=== PATIENT | male | born 1930 | race Caucasian/White ===

== ENCOUNTER → 2016-10-04 | Outpatient (CLI) | payer MEDICARE, BC, OTHER ==
[2016-10-04 15:30] LABS: ANION GAP 11 (5-19); BLOOD UREA NITROGEN 24 mg/dL (7-20); CALCIUM 9.5 mg/dL (8.4-10.2); CARBON DIOXIDE 25 mmol/L (22-30); CHLORIDE 105 mmol/L (98-107); CREATININE RESULT 1.54 mg/dL (0.52-1.25); GLUCOSE 171 mg/dL (75-110); POTASSIUM 4.9 mmol/L (3.6-5.0)
== END ==
LOC: OD 13:56
PROVIDERS: ATTEND Internal Medicine Nephrology
DX: N18.3 Chronic kidney disease, stage 3 (moderate) (principal); E11.9 Type 2 diabetes mellitus without complications; E87.5 Hyperkalemia
CPT/HCPCS: 36415; 80048

== ENCOUNTER → 2016-11-22 | Outpatient (CLI) | payer MEDICARE, BC, OTHER | LOC: OD 10:04 | PROVIDERS: ATTEND Family Medicine | DX: E11.649 Type 2 diabetes mellitus with hypoglycemia without coma (principal) | CPT/HCPCS: 36415; 83036 ==

== ENCOUNTER → 2016-12-24 | Outpatient (CLI) | payer MEDICARE, BC, OTHER ==
[2016-12-24 11:59] LABS: ANION GAP 19 (5-19); BLOOD UREA NITROGEN 38 mg/dL (7-20); CALCIUM 9.4 mg/dL (8.4-10.2); CARBON DIOXIDE 18 mmol/L (22-30); CHLORIDE 109 mmol/L (98-107); CREATININE RESULT 2.06 mg/dL (0.52-1.25); GLUCOSE 95 mg/dL (75-110); POTASSIUM 3.9 mmol/L (3.6-5.0); SODIUM 146.1 mmol/L (137-145)
== END ==
LOC: OD 10:34
PROVIDERS: ATTEND Internal Medicine Nephrology
DX: N18.3 Chronic kidney disease, stage 3 (moderate) (principal); E11.9 Type 2 diabetes mellitus without complications; E87.5 Hyperkalemia
CPT/HCPCS: 36415; 80048

== ENCOUNTER → 2017-01-25 | Outpatient (CLI) | payer MEDICARE, BC, OTHER ==
[2017-01-25 11:33] LABS: HEMATOCRIT 40.2 % (37.9-51.0); HEMOGLOBIN 13.3 g/dL (13.5-17.0); HGB HCT DIFFERENCE -0.3; MEAN CORPUSCULAR HEMOGLOBIN 31.4 pg (27.0-33.4); MEAN CORPUSCULAR HGB CONC 33.1 g/dL (32.0-36.0); MEAN CORPUSCULAR VOLUME 95 fl (80-97); RED BLOOD COUNT 4.23 10^6/uL (4.35-5.55); RED CELL DISTRIBUTION WIDTH 15.1 % (11.5-14.0)
[2017-01-25 11:53] LABS: ALANINE AMINOTRANSFERASE 27 U/L (21-72); ALBUMIN 3.9 g/dL (3.5-5.0); ALKALINE PHOSPHATASE 60 U/L (38-126); ANION GAP 12 (5-19); ASPARTATE AMINO TRANSFERASE 22 U/L (17-59); BILIRUBIN,DIRECT 0.3 mg/dL (0.0-0.4); BILIRUBIN,TOTAL 0.7 mg/dL (0.2-1.3); BLOOD UREA NITROGEN 34 mg/dL (7-20); CALCIUM 9.9 mg/dL (8.4-10.2); CARBON DIOXIDE 21 mmol/L (22-30); CHLORIDE 113 mmol/L (98-107); CREATININE RESULT 1.33 mg/dL (0.52-1.25); GLUCOSE 65 mg/dL (75-110); POTASSIUM 4.8 mmol/L (3.6-5.0); SODIUM 145.7 mmol/L (137-145); TOTAL PROTEIN 7.2 g/dL (6.3-8.2); URIC ACID 3.7 mg/dL (3.5-8.5)
== END ==
LOC: OD 10:52
PROVIDERS: ATTEND Internal Medicine Nephrology
DX: N18.3 Chronic kidney disease, stage 3 (moderate) (principal); E11.9 Type 2 diabetes mellitus without complications; I95.9 Hypotension, unspecified; R53.81 Other malaise
CPT/HCPCS: 36415; 80053; 84550; 85027

== ENCOUNTER → 2017-03-08 | Outpatient (CLI) | payer MEDICARE, BC, OTHER ==
[2017-03-08 11:47] LABS: HEMATOCRIT 34.1 % (37.9-51.0); HEMOGLOBIN 11.5 g/dL (13.5-17.0); HGB HCT DIFFERENCE 0.4; MEAN CORPUSCULAR HEMOGLOBIN 32.6 pg (27.0-33.4); MEAN CORPUSCULAR HGB CONC 33.7 g/dL (32.0-36.0); MEAN CORPUSCULAR VOLUME 97 fl (80-97); RED BLOOD COUNT 3.53 10^6/uL (4.35-5.55); RED CELL DISTRIBUTION WIDTH 15.9 % (11.5-14.0); WHITE BLOOD COUNT 15.8 10^3/uL (4.0-10.5)
[2017-03-08 12:10] LABS: ANION GAP 15 (5-19); BLOOD UREA NITROGEN 37 mg/dL (7-20); CALCIUM 9.6 mg/dL (8.4-10.2); CARBON DIOXIDE 13 mmol/L (22-30); CHLORIDE 117 mmol/L (98-107); CREATININE RESULT 1.63 mg/dL (0.52-1.25); GLUCOSE 106 mg/dL (75-110); POTASSIUM 4.3 mmol/L (3.6-5.0); SODIUM 145.3 mmol/L (137-145)
== END ==
LOC: OD 10:39
PROVIDERS: ATTEND Internal Medicine Nephrology
DX: N18.3 Chronic kidney disease, stage 3 (moderate) (principal); E87.5 Hyperkalemia
CPT/HCPCS: 36415; 80048; 85027

== ENCOUNTER → 2017-04-08 | Outpatient (CLI) | payer MEDICARE, BC, OTHER ==
[2017-04-08 12:45] LABS: HEMATOCRIT 34.1 % (37.9-51.0); HEMOGLOBIN 11.5 g/dL (13.5-17.0); HGB HCT DIFFERENCE 0.4; MEAN CORPUSCULAR HEMOGLOBIN 34.8 pg (27.0-33.4); MEAN CORPUSCULAR HGB CONC 33.7 g/dL (32.0-36.0); MEAN CORPUSCULAR VOLUME 103 fl (80-97); RED BLOOD COUNT 3.31 10^6/uL (4.35-5.55); WHITE BLOOD COUNT 13.2 10^3/uL (4.0-10.5)
[2017-04-08 13:12] LABS: ANION GAP 19 (5-19); BLOOD UREA NITROGEN 48 mg/dL (7-20); CALCIUM 9.2 mg/dL (8.4-10.2); CARBON DIOXIDE 15 mmol/L (22-30); CHLORIDE 112 mmol/L (98-107); CREATININE RESULT 1.86 mg/dL (0.52-1.25); GLUCOSE 150 mg/dL (75-110); POTASSIUM 4.9 mmol/L (3.6-5.0); SODIUM 146.2 mmol/L (137-145)
== END ==
LOC: OD 11:24
PROVIDERS: ATTEND Internal Medicine Nephrology
DX: N18.3 Chronic kidney disease, stage 3 (moderate) (principal); D64.9 Anemia, unspecified; E11.9 Type 2 diabetes mellitus without complications
CPT/HCPCS: 36415; 80048; 85027

== ENCOUNTER 2017-04-09 11:58 | Emergency (ER) | payer MEDICARE, BC, OTHER ==
[2017-04-09] MEDS ORDERED: NORMAL SALINE 1000 ML 1,000 ML IV PRN (12:34)
--- NOTE | 2017-04-09 13:14 | RADIOLOGY REPORT (SQ) ---
EXAM DESCRIPTION: CT HEAD WITHOUT COMPLETED DATE/TIME: 04/09/2017 12:50 pm REASON FOR STUDY: injury COMPARISON: CT brain 02/04/2015 TECHNIQUE: Axial images acquired through the brain without intravenous contrast. Images reviewed wi th bone, brain and subdural windows. Images stored on PACS. All CT scanners at this facility use dose modulation, iterative reconstruction, and/or weight based d osing when appropriate to reduce radiation dose to as low as reasonably achievable (ALARA). [facility]: Dose Right [facility]: CareDose [facility]: Dose Right [facility]: Teradose 4D [facility]: [employer] RADIATION DOSE: Up-to-date CT equipment and radiation dose reduction techniques were employed. CTDIv ol: 62.6 mGy. DLP: 1163 mGy-cm. mGy. LIMITATIONS: None. FINDINGS: VENTRICLES: Normal size and contour. CEREBRUM: No masses. No hemorrhage. No midline shift. 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 No evidence for acute infarcti on. CEREBELLUM: No masses. No hemorrhage. No alteration of density. No evidence for acute infarction. EXTRAAXIAL SPACES: No fluid collections. No masses. ORBITS AND GLOBE: No intra- or extraconal masses. Normal contour of globe without masses. CALVARIUM: No fracture. PARANASAL SINUSES: No fluid or mucosal thickening. SOFT TISSUES: No mass or hematoma. OTHER: No other significant finding. IMPRESSION: No acute findings TECHNICAL DOCUMENTATION: JOB ID: [id number] Quality ID # [id number]: Final reports with documentation of one or more dose reduction techniques (e.g., Au tomated exposure control, adjustment of the mA and/or kV according to patient size, use of iterative reconstruction technique) 2010 [employer]- All Rights Reserved
--- NOTE | 2017-04-09 13:14 | ER Document Report ---
ED Fall - General Chief Complaint: Fall Injury Stated Complaint: FALL/HEAD INJURY Time Seen by Provider: 04/09/17 12:23 Mode of Arrival: Ambulatory Information source: Patient, Relative TRAVEL OUTSIDE OF THE [place] IN LAST 30 DAYS: No - HPI Patient complains to provider of: Fall, head injury Occurred: Just prior to arrival Where: Outdoors Context: Fell from standing Associated symptoms: None Location of injury/pain: Head Quality of pain: Achy Severity: Mild Pain Level: 1 Notes: Patient is an 87-year-old male brought to the emergency room by after fall , they were in the parking lot of the warehouse associate driver office when this occurred, states he was being on the passenger side of the car when she walked over to him he collapsed and fell to the ground, there was no loss of consciousness, he did hit the back of his head, no vomiting, no vision changes, does report that patient has had multiple falls recently, patient has a history of blood abnormality which she sees a warehouse associate driver for records it appears as though he has persistent leukocytosis, with occasional thrombocytopenia, he is also followed by nephrology for renal insufficiency and takes bicarb supplementation daily - Related data Allergies/Adverse Reactions: No Known Allergies Allergy (Unverified 04/09/17 13:38) Home Medications: Current Home Medications Febuxostat [Uloric 40 mg Tablet] 40 mg PO DAILY 04/09/17 [History] Garlic [Garlique] 1 tab PO BID 04/09/17 [History] Loratadine 10 mg PO DAILY 04/09/17 [History] Megestrol Acetate 15 ml PO DAILY 04/09/17 [History] Midodrine HCl [Proamatine 5 Mg Tablet] 5 mg PO TID 04/09/17 [History] Ondansetron [Ondansetron Odt] 4 mg PO PRN PRN 04/09/17 [History] Sodium Bicarbonate 650 mg PO BID 04/09/17 [History] Past Medical History - General Information source: Patient, Relative - Social History Smoking Status: Never Smoker Chew tobacco use (# tins/day): No Frequency of alcohol use: None Drug Abuse: None Family History: Reviewed & Not Pertinent - Past Medical History Cardiac Medical History: Reports: Hx Hypercholesterolemia, Hx Hypertension Pulmonary Medical History: Denies: Hx Tuberculosis Neurological Medical History: Denies: Hx Seizures Endocrine Medical History: Reports: Hx Diabetes Mellitus Type 2 GI Medical History: Reports: Hx Gastroesophageal Reflux Disease Musculoskeltal Medical History: Reports Hx Arthritis Psychiatric Medical History: Reports: Hx Depression Past Surgical History: Reports: Hx Cholecystectomy. Denies: Hx Pacemaker - Immunizations Hx Diphtheria, Pertussis, Tetanus Vaccination: - unk Hx Pneumococcal Vaccination: 08/26/12 Review of Systems - Review of Systems Constitutional: Weakness EENT: No symptoms reported Cardiovascular: No symptoms reported Respiratory: No symptoms reported Gastrointestinal: No symptoms reported Genitourinary: No symptoms reported Male Genitourinary: No symptoms reported Musculoskeletal: No symptoms reported Skin: See HPI Hematologic/Lymphatic: No symptoms reported Neurological/Psychological: No symptoms reported -: Yes All other systems reviewed and negative Physical Exam - Vital signs Vitals: Resp Pulse Ox 23 H 100 04/09/17 12:10 04/09/17 12:10 Interpretation: Normal - General General appearance: Appears well, Alert In distress: None - HEENT Head: Normocephalic, Ecchymosis - 2.5 x 1 cm ecchymosis to left posterior scalp Eyes: Normal Conjunctiva: Normal Extraocular movements intact: Yes Eyelashes: Normal Pupils: PERRL - Respiratory Respiratory status: No respiratory distress Chest status: Nontender Breath sounds: Normal Chest palpation: Normal - Cardiovascular Rhythm: Regular Heart sounds: Normal auscultation Murmur: No - Abdominal Inspection: Normal Distension: No distension Bowel sounds: Normal Tenderness: Nontender Organomegaly: No organomegaly - Back Back: Normal, Nontender - Extremities General upper extremity: Normal inspection, Nontender, Normal color, Normal ROM , Normal temperature General lower extremity: Normal inspection, Nontender, Normal color, Normal ROM , Normal temperature, Normal weight bearing. No: Rodo's sign - Neurological Neuro grossly intact: Yes Cognition: Normal Orientation: AAOx4 [place] Coma Scale Eye Opening: Spontaneous [place] Coma Scale Verbal: Oriented [place] Coma Scale Motor: Obeys Commands Katharina Coma Scale Total: 15 Speech: Normal Motor strength normal: LUE, RUE, LLE, RLE Sensory: Normal - Psychological Associated symptoms: Normal affect, Normal mood - Skin Skin Temperature: Warm Skin Moisture: Dry Skin Color: Normal Course - Re-evaluation Re-evalutation: 04/09/17 15:20 Lab and imaging findings were discussed with patient and spouse at bedside which are relatively unremarkable except for some chronic lab changes, patient was discharged with instructions for follow-up, advised to return if any additional concerns, patient and at bedside acknowledge understanding and agreement with this plan - Vital Signs Vital signs: Temp Pulse Resp BP Pulse Ox 97.7 F 27 H 122/55 L 100 04/09/17 13:01 04/09/17 13:01 04/09/17 13:01 04/09/17 13:01 - Laboratory Result Diagrams: 04/09/17 13:15 04/09/17 13:15 Laboratory results interpreted by me: 04/09/17 04/09/17 04/09/17 13:15 13:15 13:35 WBC 14.4 H RBC 3.32 L Hgb 11.4 L Hct 33.7 L MCV 102 H MCH 34.5 H RDW 14.1 H Plt Count 146 L Absolute Neutrophils 9.6 H Sodium 147.8 H Potassium 5.3 H Chloride 113 H Carbon Dioxide 20 L BUN 48 H Creatinine 1.79 H Est GFR ( Amer) 44 L Est GFR (Non-Af Amer) 36 L Urine Urobilinogen 2.0 H Urine Ascorbic Acid 40 H - Diagnostic Test Radiology reviewed: Image reviewed, Reports reviewed Discharge - Discharge Clinical Impression: Fall Qualifiers: Encounter type: initial encounter Qualified Code(s): W19.XXXA - Unspecified fall, initial encounter Head injury Qualifiers: Encounter type: initial encounter Qualified Code(s): S09.90XA - Unspecified injury of head, initial encounter Condition: Stable Disposition: HOME, SELF-CARE Instructions: Head Injury Precautions ([facility]) Additional Instructions: Follow up with your primary care provider in one to 2 days. Return to the emergency room immediately if symptoms worsen or any additional concerns.
[2017-04-09 13:34] LABS: VENOUS BLOOD BASE EXCESS -3.9 mmol/L; VENOUS BLOOD HCO3 22.1 mmol/L (20-32); VENOUS BLOOD PCO2 43.7 mmHg (35-63); VENOUS BLOOD PH 7.32 (7.30-7.42)
[2017-04-09 13:36] LABS: ABSOLUTE EOSINOPHILS # (AUTO) 0.1 10^3/uL (0.0-0.6); ABSOLUTE LYMPHOCYTES (AUTO) 3.6 10^3/uL (0.5-4.7); ABSOLUTE NEUT (AUTO) 9.6 10^3/uL (1.7-8.2); BASOPHILS % (AUTO) 0.3 % (0-2); EOSINOPHILS % (AUTO) 0.5 % (0-6); HEMATOCRIT 33.7 % (37.9-51.0); HEMOGLOBIN 11.4 g/dL (13.5-17.0); HGB HCT DIFFERENCE 0.5; LYMPHOCYTES % (AUTO) 25.2 % (13-45); MEAN CORPUSCULAR HEMOGLOBIN 34.5 pg (27.0-33.4); MEAN CORPUSCULAR VOLUME 102 fl (80-97); MONOCYTES % (AUTO) 6.9 % (3-13); RED BLOOD COUNT 3.32 10^6/uL (4.35-5.55); RED CELL DISTRIBUTION WIDTH 14.1 % (11.5-14.0); SEGMENTED NEUTROPHILS % (AUTO) 67.1 % (42-78); WHITE BLOOD COUNT 14.4 10^3/uL (4.0-10.5)
[2017-04-09 13:51] LABS: ALANINE AMINOTRANSFERASE 26 U/L (21-72); ALBUMIN 4.3 g/dL (3.5-5.0); ALKALINE PHOSPHATASE 52 U/L (38-126); ANION GAP 15 (5-19); ASPARTATE AMINO TRANSFERASE 34 U/L (17-59); BILIRUBIN,DIRECT 0.4 mg/dL (0.0-0.4); BILIRUBIN,TOTAL 0.8 mg/dL (0.2-1.3); BLOOD UREA NITROGEN 48 mg/dL (7-20); CALCIUM 9.7 mg/dL (8.4-10.2); CARBON DIOXIDE 20 mmol/L (22-30); CHLORIDE 113 mmol/L (98-107); CREATININE RESULT 1.79 mg/dL (0.52-1.25); GLUCOSE 88 mg/dL (75-110); POTASSIUM 5.3 mmol/L (3.6-5.0); SODIUM 147.8 mmol/L (137-145); TOTAL PROTEIN 7.4 g/dL (6.3-8.2)
[2017-04-09 13:56] LABS: APPEARANCE,URINE SLIGHTLY-CLOUDY; BILIRUBIN,URINE NEGATIVE (NEGATIVE); GLUCOSE, URINE NEGATIVE (NEGATIVE); KETONES,URINE NEGATIVE (NEGATIVE); LEUKOCYTE ESTERASE,URINE NEGATIVE (NEGATIVE); NITRITE,URINE NEGATIVE (NEGATIVE); PROTEIN,URINE NEGATIVE (NEGATIVE); URINE SPECIFIC GRAVITY 1.015
[2017-04-09 16:04] VITALS: BP 160/67
== END 2017-04-09 16:04 | disposition home or self-care (01) ==
LOC: ER 11:58
DX: S09.90XA Unspecified injury of head, initial encounter (principal); R53.1 Weakness; W18.30XA Fall on same level, unspecified, initial encounter; Y92.481 Parking lot as the place of occurrence of the external cause; E78.00 Pure hypercholesterolemia, unspecified; I10 Essential (primary) hypertension; K21.9 Gastro-esophageal reflux disease without esophagitis; Z90.49 Acquired absence of other specified parts of digestive tract
CPT/HCPCS: 99284; 96360; 36415; 87086; 85025; 80053; 81001; 82803; 70450; J7030

== ENCOUNTER → 2017-05-08 | Outpatient (CLI) | payer MEDICARE, BC, OTHER ==
[2017-05-08 12:39] LABS: BLOOD UREA NITROGEN 27 mg/dL (7-20); CALCIUM 9.4 mg/dL (8.4-10.2); CARBON DIOXIDE 19 mmol/L (22-30); CREATININE RESULT 1.51 mg/dL (0.52-1.25); SODIUM 146.7 mmol/L (137-145)
[2017-05-08 12:50] LABS: GLUCOSE 187 mg/dL (75-110); POTASSIUM 4.5 mmol/L (3.6-5.0)
[2017-05-08 12:51] LABS: ANION GAP 15 (5-19); CHLORIDE 113 mmol/L (98-107)
== END ==
LOC: OD 10:44
PROVIDERS: ATTEND Internal Medicine Nephrology
DX: N18.3 Chronic kidney disease, stage 3 (moderate) (principal); D64.9 Anemia, unspecified; E87.5 Hyperkalemia; M10.00 Idiopathic gout, unspecified site
CPT/HCPCS: 36415; 80048

== ENCOUNTER → 2017-05-15 | Outpatient (CLI) | payer MEDICARE, BC, OTHER | LOC: OD 15:21 | PROVIDERS: ATTEND Internal Medicine Nephrology | DX: E11.22 Type 2 diabetes mellitus with diabetic chronic kidney disease (principal); N18.3 Chronic kidney disease, stage 3 (moderate); D64.9 Anemia, unspecified; I95.9 Hypotension, unspecified | CPT/HCPCS: 36415; 82533 ==

== ENCOUNTER → 2017-05-28 | Outpatient (CLI) | payer MEDICARE, BC, OTHER | LOC: OD 10:49 | PROVIDERS: ATTEND Family Medicine | DX: E11.9 Type 2 diabetes mellitus without complications (principal); E78.2 Mixed hyperlipidemia; R35.1 Nocturia; I10 Essential (primary) hypertension; Z79.899 Other long term (current) drug therapy | CPT/HCPCS: 36415; 83036 ==

== ENCOUNTER → 2017-05-31 | Outpatient (CLI) | payer MEDICARE, BC, OTHER ==
[2017-05-31 12:43] LABS: ABSOLUTE BASOPHILS # (AUTO) 0.1 10^3/uL (0.0-0.2); ABSOLUTE EOSINOPHILS # (AUTO) 0.1 10^3/uL (0.0-0.6); ABSOLUTE LYMPHOCYTES (AUTO) 4.3 10^3/uL (0.5-4.7); ABSOLUTE MONOCYTES (AUTO) 0.8 10^3/uL (0.1-1.4); BASOPHILS % (AUTO) 0.4 % (0-2); EOSINOPHILS % (AUTO) 1.2 % (0-6); HEMATOCRIT 31.9 % (37.9-51.0); HEMOGLOBIN 10.9 g/dL (13.5-17.0); HGB HCT DIFFERENCE 0.8; MEAN CORPUSCULAR HEMOGLOBIN 33.7 pg (27.0-33.4); MEAN CORPUSCULAR HGB CONC 34.2 g/dL (32.0-36.0); MEAN CORPUSCULAR VOLUME 99 fl (80-97); MONOCYTES % (AUTO) 6.8 % (3-13); RED BLOOD COUNT 3.24 10^6/uL (4.35-5.55); RED CELL DISTRIBUTION WIDTH 13.6 % (11.5-14.0); SEGMENTED NEUTROPHILS % (AUTO) 56.6 % (42-78); WHITE BLOOD COUNT 12.4 10^3/uL (4.0-10.5)
[2017-05-31 12:54] LABS: ANION GAP 14 (5-19); BLOOD UREA NITROGEN 33 mg/dL (7-20); CALCIUM 9.7 mg/dL (8.4-10.2); CARBON DIOXIDE 20 mmol/L (22-30); CHLORIDE 112 mmol/L (98-107); CHOLESTEROL 133.74 mg/dL (0-200); CREATININE RESULT 1.44 mg/dL (0.52-1.25); Direct HDL 27 mg/dL (>40); GLUCOSE 85 mg/dL (75-110); POTASSIUM 4.5 mmol/L (3.6-5.0); SODIUM 145.6 mmol/L (137-145); TRIGLYCERIDES 150 mg/dL (<150)
[2017-05-31 13:04] LABS: DIRECT LDL 64 mg/dL (<100)
[2017-05-31 13:14] LABS: ANION GAP 14 (5-19); BLOOD UREA NITROGEN 33 mg/dL (7-20); CALCIUM 9.7 mg/dL (8.4-10.2); CARBON DIOXIDE 20 mmol/L (22-30); CHLORIDE 112 mmol/L (98-107); CREATININE RESULT 1.44 mg/dL (0.52-1.25); GLUCOSE 85 mg/dL (75-110); POTASSIUM 4.5 mmol/L (3.6-5.0); SODIUM 145.6 mmol/L (137-145)
[2017-05-31 13:15] LABS: MAGNESIUM 1.3 mg/dL (1.6-2.3)
== END ==
LOC: OD 11:34
PROVIDERS: ATTEND Family Medicine
DX: I12.9 Hypertensive chronic kidney disease with stage 1 through stage 4 chronic kidney disease, or unspecified chronic kidney disease (principal); N18.3 Chronic kidney disease, stage 3 (moderate); E11.9 Type 2 diabetes mellitus without complications; D64.9 Anemia, unspecified; I95.9 Hypotension, unspecified; E78.2 Mixed hyperlipidemia; R35.1 Nocturia; Z79.899 Other long term (current) drug therapy
CPT/HCPCS: 36415; 80048; 80061; 83735; 84153; 84443; 85025

== ENCOUNTER → 2017-06-11 | Outpatient (CLI) | payer MEDICARE, BC, OTHER | LOC: OD 15:42 | PROVIDERS: ATTEND Internal Medicine Nephrology | DX: E83.42 Hypomagnesemia (principal); E87.5 Hyperkalemia; N18.3 Chronic kidney disease, stage 3 (moderate); I95.9 Hypotension, unspecified | CPT/HCPCS: 36415; 82024 ==

== ENCOUNTER → 2017-07-04 | Outpatient (CLI) | payer MEDICARE, BC, OTHER ==
[2017-07-04 13:11] LABS: HEMATOCRIT 35.5 % (37.9-51.0); HEMOGLOBIN 12.1 g/dL (13.5-17.0); HGB HCT DIFFERENCE 0.8; MEAN CORPUSCULAR HEMOGLOBIN 32.6 pg (27.0-33.4); MEAN CORPUSCULAR VOLUME 96 fl (80-97); RED CELL DISTRIBUTION WIDTH 14.2 % (11.5-14.0); WHITE BLOOD COUNT 12.4 10^3/uL (4.0-10.5)
[2017-07-04 13:37] LABS: ANION GAP 16 (5-19); BLOOD UREA NITROGEN 28 mg/dL (7-20); CALCIUM 9.5 mg/dL (8.4-10.2); CARBON DIOXIDE 25 mmol/L (22-30); CHLORIDE 106 mmol/L (98-107); CREATININE RESULT 1.34 mg/dL (0.52-1.25); GLUCOSE 220 mg/dL (75-110); MAGNESIUM 1.6 mg/dL (1.6-2.3); POTASSIUM 3.9 mmol/L (3.6-5.0); SODIUM 146.6 mmol/L (137-145)
== END ==
LOC: OD 11:25
PROVIDERS: ATTEND Internal Medicine Nephrology
DX: E83.42 Hypomagnesemia (principal); E87.5 Hyperkalemia; N18.3 Chronic kidney disease, stage 3 (moderate); I95.9 Hypotension, unspecified
CPT/HCPCS: 36415; 80048; 82024; 82533; 83735; 85027

== ENCOUNTER 2017-07-09 01:45 | Inpatient (IN) | payer MEDICARE, BC, OTHER ==
[2017-07-09] MEDS ORDERED: NORMAL SALINE 1000 ML 2,000 ML IV ONE (02:20)
--- NOTE | 2017-07-09 02:23 | ER Document Report ---
ED General <ELIESER MÁRQUEZ - Last Filed: 07/09/17 05:03> - General TRAVEL OUTSIDE OF THE [place] IN LAST 30 DAYS: No <SUDHA FLORENCE - Last Filed: 07/09/17 08:28> - General Chief Complaint: Shortness Of Breath Stated Complaint: DIFFICULTY BREATHING Time Seen by Provider: 07/09/17 01:57 Notes: Patient is an 87-year-old male presents emergency department via EMS with chief complaint of productive cough with shortness of breath for 1-1/2 weeks. According to EMS who picked him up from his home his saying that he woke up this evening with difficulty breathing and gagging. Per EMS report patient is at baseline and is oriented to person and place but difficulty with balance. Review of the records shows patient has a history of chronic kidney disease stage III and follows with Dr. Otto and Dr. Martin. Medical history significant for diabetes, history of hypotension, history of gout. Patient is on bicarb for his kidney disease (SUDHA FLORENCE) - Related Data Allergies/Adverse Reactions: No Known Allergies Allergy (Unverified 04/09/17 13:38) Home Medications: Current Home Medications Calcium Carb/D3/Magnesium/Zinc [Shankar Mag Zinc + D Tablet] 1 tab PO DAILY [History] Meclizine HCl [Antivert 25 mg Tablet] 0.5 - 1 tab PO QIDP PRN 07/09/17 [History] Prednisone [Prednisone] 5 mg PO QHS 07/09/17 [History] Prednisone [Prednisone] 10 mg PO QAM 07/09/17 [History] Past Medical History - Social History Smoking Status: Unknown if Ever Smoked Family History: Reviewed & Not Pertinent - Past Medical History Cardiac Medical History: Reports: Hx Hypercholesterolemia, Hx Hypertension Pulmonary Medical History: Denies: Hx Tuberculosis Neurological Medical History: Denies: Hx Seizures Endocrine Medical History: Reports: Hx Diabetes Mellitus Type 2 GI Medical History: Reports: Hx Gastroesophageal Reflux Disease Musculoskeltal Medical History: Reports Hx Arthritis Psychiatric Medical History: Reports: Hx Depression Past Surgical History: Reports: Hx Cholecystectomy. Denies: Hx Pacemaker - Immunizations Hx Diphtheria, Pertussis, Tetanus Vaccination: - unk Hx Pneumococcal Vaccination: 08/26/12 <SUDHA FLORENCE - Last Filed: 07/09/17 08:28> Review of Systems - Review of Systems -: Yes ROS unobtainable due to patient's medical condition <PRASHANTSUDHA - Last Filed: 07/09/17 08:28> Physical Exam <ELIESER MÁRQUEZ - Last Filed: 07/09/17 05:03> <SUDHA FLORENCE - Last Filed: 07/09/17 08:28> - Vital signs Vitals: Temp Pulse Resp BP Pulse Ox 98.8 F 110 H 18 140/64 H 95 07/09/17 01:50 07/09/17 01:50 07/09/17 01:50 07/09/17 01:50 07/09/17 01:50 - Notes Notes: PHYSICAL EXAM GENERAL: Alert, interacts well. Oriented to person and place but not events HEAD: Normocephalic, atraumatic. EYES: Pupils equal, round, and reactive to light. Extraocular movements intact. ENT: Oral mucosa moist, tongue midline. NECK: Full range of motion. Supple. Trachea midline. LUNGS: Diminished at the bases without wheezes, rales, or rhonchi. No respiratory distress. HEART: Regular rate and rhythm. No murmurs, gallops, or rubs. ABDOMEN: Soft, nondistended, nontender. No guarding, rebound, or rigidity.. Bowel sounds present in all 4 quadrants. EXTREMITIES: Moves all 4 extremities spontaneously. No edema, radial and dorsalis pedis pulses 2/4 bilaterally. No cyanosis. NEUROLOGICAL: Normal speech. PSYCH: Normal affect, normal mood. SKIN: Warm, dry, normal turgor. No rashes or lesions noted. (SUDHA FLORENCE) Course - Laboratory Result Diagrams: 07/09/17 02:37 07/09/17 02:30 <ELIESER MÁRQUEZ Mindy - Last Filed: 07/09/17 05:03> - Laboratory Result Diagrams: 07/09/17 06:14 07/09/17 06:14 <SUDHA FLORENCE - Last Filed: 07/09/17 08:28> - Re-evaluation Re-evalutation: 07/09/17 05:03 Discussed with Sudha Florence. I assessed the patient and he had continued hypotension despite fluid boluses. His pulses did remain bounding and cap refill < 3 sec Skin warm and dry. (ELIESER MÁRQUEZ) 07/09/17 02:30 Patient is an 87-year-old male is hemodynamically stable with an initial pressure of 140/64, mildly tachycardic in the 110's. Afebrile with initial temp of 98.8 and satting 95% on room air. Presentation is concerning for sepsis given tachycardia and presentation of a productive cough of 1-1/2 weeks. Chest x-ray ordered in triage shows concerns for possible bilateral infiltrate versus congestion. Sepsis protocol initiated and patient will receive initial saline bolus. 07/09/17 04:40 White count at 10.7 with 91% neutrophils indicating left shift. Mild elevation in patient's BUN and creatinine from baseline of his stage III chronic kidney disease. Lactic acid of 5.1 with an anion gap of 17. Urinalysis does show evidence of leuk esterase and bacteria. Will cover with Zosyn. Difficulty establishing peripheral access. Dr. Márquez has placed a right femoral line. Patient has received 2L of NS with a third started. Patient has been maintaining systolics in 70's and 80's. Will initiate patient on levophed gtt. 07/09/17 05:21 Systolics between 80's and 110's on levophed. Patient has become increasingly tachypneic with worsening AMS. Will intubate the patient due to tachypnea, altered mental status. 07/09/17 06:15 Patient intubated, will obtain repeat ABG, EKG and lactic. 07/09/17 06:37 Repeat systolics 56-76 on levophed, have also initiated a second pressor of neosynephrine to titrate to goal MAP of 65. Was able to contact his 07/09/17 07:19 Have placed call to admit patient to ICU 07/09/17 07:49 Patient has been accepted to ICU under Dr. Boyd. Patient tachpyneic, will give a dose of versed (SUDHA FLORENCE) - Vital Signs Vital signs: Temp Pulse Resp BP Pulse Ox 97.4 F 110 H 41 H 65/33 L 100 07/09/17 08:12 07/09/17 01:50 07/09/17 08:12 07/09/17 08:12 07/09/17 08:12 - Laboratory Laboratory results interpreted by me: 11/14/17 11/14/17 11/14/17 02:30 02:30 02:37 WBC 10.7 H RBC 3.04 L Hgb 10.1 L Hct 29.1 L MCV MCHC RDW 14.6 H Plt Count 123 L Seg Neutrophils % 91.5 H Band Neutrophils % Lymphocytes % 7.7 L Monocytes % 0.6 L Absolute Neutrophils 9.8 H Abs Neuts (Manual) Carbonic Acid ABG pH ABG pCO2 ABG pO2 ABG HCO3 ABG Total CO2 ABG O2 Saturation VBG pH VBG pCO2 Chloride Carbon Dioxide 19 L BUN 35 H Creatinine 1.63 H Est GFR ( Amer) 49 L Est GFR (Non-Af Amer) 40 L Glucose 189 H Lactic Acid Calcium Direct Bilirubin Creatine Kinase < 20 L NT-Pro-B Natriuret Pep 1550 H Total Protein 6.1 L Albumin Urine Protein Urine Blood Urine Urobilinogen Ur Leukocyte Esterase Crossmatch 07/09/17 07/09/17 07/09/17 02:37 02:37 03:05 WBC RBC Hgb Hct MCV MCHC RDW Plt Count Seg Neutrophils % Band Neutrophils % Lymphocytes % Monocytes % Absolute Neutrophils Abs Neuts (Manual) Carbonic Acid ABG pH ABG pCO2 ABG pO2 ABG HCO3 ABG Total CO2 ABG O2 Saturation VBG pH 7.49 H VBG pCO2 28.3 L Chloride Carbon Dioxide BUN Creatinine Est GFR ( Amer) Est GFR (Non-Af Amer) Glucose Lactic Acid 5.1 H Calcium Direct Bilirubin Creatine Kinase NT-Pro-B Natriuret Pep Total Protein Albumin Urine Protein 100 H Urine Blood MODERATE H Urine Urobilinogen 4.0 H Ur Leukocyte Esterase MODERATE H Crossmatch 07/09/17 07/09/17 07/09/17 06:14 06:14 06:14 WBC 28.3 H D RBC 1.96 L Hgb 6.4 L D Hct 20.8 L MCV 106 H D MCHC 30.6 L RDW 15.2 H Plt Count 133 L Seg Neutrophils % Band Neutrophils % 14 H Lymphocytes % Monocytes % Absolute Neutrophils Abs Neuts (Manual) 23.8 H Carbonic Acid ABG pH ABG pCO2 ABG pO2 ABG HCO3 ABG Total CO2 ABG O2 Saturation VBG pH VBG pCO2 Chloride 112 H Carbon Dioxide 7 L* D BUN 31 H Creatinine 1.97 H Est GFR ( Amer) 39 L Est GFR (Non-Af Amer) 32 L Glucose 384 H Lactic Acid 13.6 H Calcium 7.2 L Direct Bilirubin 0.5 H Creatine Kinase NT-Pro-B Natriuret Pep Total Protein 3.9 L Albumin 2.1 L Urine Protein Urine Blood Urine Urobilinogen Ur Leukocyte Esterase Crossmatch 07/09/17 07/09/17 06:20 07:41 WBC RBC Hgb Hct MCV MCHC RDW Plt Count Seg Neutrophils % Band Neutrophils % Lymphocytes % Monocytes % Absolute Neutrophils Abs Neuts (Manual) Carbonic Acid 0.73 L ABG pH 7.02 L* ABG pCO2 24.2 L ABG pO2 215.1 H ABG HCO3 6.1 L ABG Total CO2 6.8 L ABG O2 Saturation 98.9 H VBG pH VBG pCO2 Chloride Carbon Dioxide BUN Creatinine Est GFR ( Amer) Est GFR (Non-Af Amer) Glucose Lactic Acid Calcium Direct Bilirubin Creatine Kinase NT-Pro-B Natriuret Pep Total Protein Albumin Urine Protein Urine Blood Urine Urobilinogen Ur Leukocyte Esterase Crossmatch See Detail Procedures - Central Line Right Femoral Consent obtained: No - Emergent as patient appears confused but did agree. Persistenting Hypotens Central line pre-insertion: Sterile PPE donned, Chloraprep applied, Sterile drapes applied Central line lumen type: Triple Anesthetic type: 1% Lidocaine mL's of anesthesia: 2 Ultrasound guided: No Line secured with sutures: Yes Central line post-insertion: Blood return from lumens, Biopatch applied, Sutured , Sterile dressing applied, Other - 8.5 Hebrew Placed using Seldinger technique emergently due to hypoperfusion Number of attempts: 1 Complications: No <ELIESER MÁRQUEZ - Last Filed: 07/09/17 05:03> - Intubation Orotracheal Time of Intubation: 05:35 Airway evaluation: Normal anatomy, Copious secretions Mallampati Classification: Class 1 Medications: Etomidate, Succinylcholine Intubation method: Orotracheal [place]ade type: [place], Other - [place] Equipment used: Glidescope ETT size: 7.5 ETT secured at: Gums ETT secured at (cm): 22 Breath Sounds after Intubation: Equal End tidal CO2 confirmed: Yes Ventilator settings: CMV Post Intubation Xray: Yes Intubation Complications: No complications <SUDHA FLORENCE - Last Filed: 07/09/17 08:28> Discharge <ELIESER MÁRQUEZ Mindy - Last Filed: 07/09/17 05:03> - Discharge Admitting Provider: [facility] Unit Admitted: ICU <SUDHA FLORENCE - Last Filed: 07/09/17 08:28> - Discharge Clinical Impression: Sepsis Qualifiers: Sepsis type: sepsis due to unspecified organism Qualified Code(s): A41.9 - Sepsis, unspecified organism Pneumonia Qualifiers: Pneumonia type: due to unspecified organism Laterality: bilateral Lung location : lower lobe of lung Qualified Code(s): J18.9 - Pneumonia, unspecified organism Respiratory failure Qualifiers: Chronicity: acute Respiratory failure complication: hypoxia and hypercapnia Qualified Code(s): J96.01 - Acute respiratory failure with hypoxia Condition: Critical Disposition: ADMITTED INPATIENT
--- NOTE | 2017-07-09 02:27 | RADIOLOGY REPORT (SQ) ---
EXAM DESCRIPTION: CHEST SINGLE VIEW CLINICAL HISTORY: productive cough COMPARISON: 02/04/2015 FINDINGS: Single frontal view of the chest. Low lung volumes. Bilateral interstitial opacities. No large effusion definitely identified. No pneumothorax. No displaced rib fractures identified. Upper abdominal soft tissues are unremarkable. IMPRESSION: 1. Bilateral interstitial opacities and low lung volumes. This may be related to a combination of chronic interstitial opacities and atelectasis however superimposed developing pneumonia or pulmonary edema can produce similar appearances. Continued radiographic follow-up recommended.
[2017-07-09 02:56] LABS: VENOUS BLOOD BASE EXCESS -1.3 mmol/L; VENOUS BLOOD HCO3 21.2 mmol/L (20-32); VENOUS BLOOD PCO2 28.3 mmHg (35-63); VENOUS BLOOD PH 7.49 (7.30-7.42)
[2017-07-09 03:00] LABS: ABSOLUTE LYMPHOCYTES (AUTO) 0.8 10^3/uL (0.5-4.7); ABSOLUTE MONOCYTES (AUTO) 0.1 10^3/uL (0.1-1.4); ABSOLUTE NEUT (AUTO) 9.8 10^3/uL (1.7-8.2); BASOPHILS % (AUTO) 0.1 % (0-2); EOSINOPHILS % (AUTO) 0.1 % (0-6); HEMATOCRIT 29.1 % (37.9-51.0); HEMOGLOBIN 10.1 g/dL (13.5-17.0); HGB HCT DIFFERENCE 1.2; LYMPHOCYTES % (AUTO) 7.7 % (13-45); MEAN CORPUSCULAR HEMOGLOBIN 33.2 pg (27.0-33.4); MEAN CORPUSCULAR HGB CONC 34.7 g/dL (32.0-36.0); MEAN CORPUSCULAR VOLUME 96 fl (80-97); MONOCYTES % (AUTO) 0.6 % (3-13); RED BLOOD COUNT 3.04 10^6/uL (4.35-5.55); RED CELL DISTRIBUTION WIDTH 14.6 % (11.5-14.0); SEGMENTED NEUTROPHILS % (AUTO) 91.5 % (42-78); WHITE BLOOD COUNT 10.7 10^3/uL (4.0-10.5)
[2017-07-09 03:26] LABS: AMORPHOUS SEDIMENT,URINE TRACE /HPF; APPEARANCE,URINE CLOUDY; BILIRUBIN,URINE NEGATIVE (NEGATIVE); GLUCOSE, URINE NEGATIVE (NEGATIVE); KETONES,URINE NEGATIVE (NEGATIVE); LEUKOCYTE ESTERASE,URINE MODERATE (NEGATIVE); NITRITE,URINE NEGATIVE (NEGATIVE); PROTEIN,URINE 100 mg/dL (NEGATIVE); URINE SPECIFIC GRAVITY 1.012
[2017-07-09 03:31] LABS: CREATINE KINASE MB 0.34 ng/mL (<4.55); TROPONIN I 0.028 ng/mL
[2017-07-09 03:45] LABS: ALANINE AMINOTRANSFERASE 36 U/L (21-72); ALBUMIN 3.6 g/dL (3.5-5.0); ALKALINE PHOSPHATASE 93 U/L (38-126); ANION GAP 17 (5-19); ASPARTATE AMINO TRANSFERASE 21 U/L (17-59); BILIRUBIN,DIRECT 0.4 mg/dL (0.0-0.4); BLOOD UREA NITROGEN 35 mg/dL (7-20); CALCIUM 8.6 mg/dL (8.4-10.2); CARBON DIOXIDE 19 mmol/L (22-30); CHLORIDE 104 mmol/L (98-107); CREATINE KINASE < 20 U/L (55-170); CREATININE RESULT 1.63 mg/dL (0.52-1.25); GLUCOSE 189 mg/dL (75-110); SODIUM 139.7 mmol/L (137-145); TOTAL PROTEIN 6.1 g/dL (6.3-8.2)
[2017-07-09] MEDS ORDERED: PIPERACILLIN/TAZOBACTAM 2.25 GM VIAL IV ONE (03:57)
[2017-07-09] MEDS ORDERED: NORMAL SALINE 1000 ML 1,000 ML IV ONE ×2 (04:38→06:30)
[2017-07-09] MEDS ORDERED: WATER IV PRN ×2 (04:39)
[2017-07-09] MEDS ORDERED: NOREPINEPHRINE BITARTRATE IV PRN ×2 (04:39)
[2017-07-09] MEDS ORDERED: DEXTROSE 5% IV PRN ×4 (04:39→09:24)
[2017-07-09] MEDS ORDERED: NOREPINEPHRINE BITARTRATE INJ/PF 4 MG/4 ML SDV IV ONE ×3 (04:44→08:32)
[2017-07-09] MEDS ORDERED: ETOMIDATE INJ/PF 20 MG/10 ML SDV IV ONE ×2 (05:36→05:47)
[2017-07-09] MEDS ORDERED: SUCCINYLCHOLINE CHLORIDE INJ 200 MG/10 ML VIAL IV ONE (05:47)
[2017-07-09] MEDS ORDERED: MIDAZOLAM 2 MG/2 ML INJ IV ONE (05:50)
--- NOTE | 2017-07-09 06:22 | RADIOLOGY REPORT (SQ) ---
EXAM DESCRIPTION: CHEST SINGLE VIEW CLINICAL HISTORY: shortness of breath, sepsis COMPARISON: 07/09/2017 FINDINGS: Single frontal view of the chest. Endotracheal tube with tip 2 cm above the simon. Leads in overlie the chest. Atherosclerotic calcification of the aortic arch. Low lung volumes with streaky bibasilar opacities and slightly improved aeration bilaterally. No pneumothorax. No displaced rib fractures identified. Upper abdominal soft tissues are unremarkable. IMPRESSION: Improved aeration the lung bases bilaterally with streaky bibasilar residual opacities and low lung volumes. Endotracheal tube 2 cm above the simon.
[2017-07-09] MEDS ORDERED: DEXTROSE 5%-WATER 250 ML with PHENYLEPHRINE HCL 40 MG IV PRN ×4 (06:27→10:15)
[2017-07-09] MEDS ORDERED: PHENYLEPHRINE HCL INJ/PF 10 MG/1 ML SDV ONE ×2 (06:29→08:32)
[2017-07-09 06:34] LABS: ARTERIAL BLOOD BASE EXCESS -22.9 mmol/L; ARTERIAL BLOOD O2 SATURATION 98.9 % (94-98)
[2017-07-09 06:38] LABS: HEMATOCRIT 20.8 % (37.9-51.0); HGB HCT DIFFERENCE -1.6; MEAN CORPUSCULAR HEMOGLOBIN 32.5 pg (27.0-33.4); MEAN CORPUSCULAR HGB CONC 30.6 g/dL (32.0-36.0); RED BLOOD COUNT 1.96 10^6/uL (4.35-5.55); RED CELL DISTRIBUTION WIDTH 15.2 % (11.5-14.0)
[2017-07-09 07:10] LABS: HEMOGLOBIN 6.4 g/dL (13.5-17.0); MEAN CORPUSCULAR VOLUME 106 fl (80-97)
[2017-07-09] MEDS ORDERED: NORMAL SALINE 250 ML IV PRN ×2 (07:10)
[2017-07-09 07:11] LABS: WHITE BLOOD COUNT 28.3 10^3/uL (4.0-10.5)
[2017-07-09 07:14] LABS: ANISOCYTOSIS SLIGHT; BASOPHILS % (MANUAL) 0 % (0-2); EOSINOPHILS % (MANUAL) 0 % (0-6); LYMPHOCYTES % (MANUAL) 13 % (13-45); OVALOCYTES SLIGHT; POIKILOCYTOSIS 1+; SCHISTOCYTES 1+; TOTAL CELLS COUNTED 100; TOXIC GRANULATION 2+; TOXIC VACUOLATION PRESENT
[2017-07-09 07:15] LABS: BAND NEUTROPHILS % (MANUAL) 14 % (3-5)
--- NOTE | 2017-07-09 07:24 | ER Document Report ---
Sepsis - Sepsis Documentation Sepsis Patient: Yes - Vital Signs Vitals: Temp Pulse Resp BP Pulse Ox 98.1 F 110 H 35 H 108/67 100 07/09/17 07:16 07/09/17 01:50 07/09/17 07:16 07/09/17 07:16 07/09/17 07:16 Interpretation: Hypotensive, Tachycardic, Tachypneic - Cardiovascular Peripheral Pulse Strength: Bounding Capillary refill: < 3 seconds Rhythm: Tachycardia Heart Sounds: Normal auscultation, S1 appreciated, S2 appreciated - Respiratory Breath Sounds: Rhonchi Respiratory Status: Intubated - Skin Skin Color: Pale
[2017-07-09 07:25] LABS: ALANINE AMINOTRANSFERASE 28 U/L (21-72); ALBUMIN 2.1 g/dL (3.5-5.0); ALKALINE PHOSPHATASE 73 U/L (38-126); ASPARTATE AMINO TRANSFERASE 41 U/L (17-59); BILIRUBIN,DIRECT 0.5 mg/dL (0.0-0.4); BILIRUBIN,TOTAL 0.7 mg/dL (0.2-1.3); BLOOD UREA NITROGEN 31 mg/dL (7-20); CALCIUM 7.2 mg/dL (8.4-10.2); CHLORIDE 112 mmol/L (98-107); CREATININE RESULT 1.97 mg/dL (0.52-1.25); GLUCOSE 384 mg/dL (75-110); POTASSIUM 4.1 mmol/L (3.6-5.0); SODIUM 140.2 mmol/L (137-145); TOTAL PROTEIN 3.9 g/dL (6.3-8.2)
[2017-07-09] MEDS ORDERED: NORMAL SALINE 1000 ML 1,000 ML IV PRN (07:39)
[2017-07-09 07:48] LABS: CARBON DIOXIDE 7 mmol/L (22-30)
[2017-07-09] MEDS ORDERED: DEXTROSE 5%-NORMAL SALINE 1,000 ML IV PRN (08:16)
[2017-07-09] MEDS ORDERED: PROPOFOL 100 ML IV ONE (08:23)
[2017-07-09 08:28] LABS: ANION GAP 21 (5-19)
[2017-07-09] MEDS ORDERED: VANCOMYCIN HCL 0 MG in DEXTROSE 5%-WATER 250 ML IV NR (08:30)
[2017-07-09] MEDS ORDERED: PHARMACY COMMUNICATION ORDER MC NR (08:30)
[2017-07-09] MEDS ORDERED: VASOPRESSIN INJ 20 UNIT/1 ML VIAL ONE (09:08)
[2017-07-09 09:14] LABS: ARTERIAL BLOOD BASE EXCESS -23.7 mmol/L; ARTERIAL BLOOD O2 SATURATION 98.8 % (94-98)
[2017-07-09] MEDS ORDERED: DEXTROSE 5%-WATER 250 ML with VASOPRESSIN 100 UNIT IV PRN ×2 (09:21)
[2017-07-09] MEDS ORDERED: SODIUM BICARBONATE IV PRN ×2 (09:24)
[2017-07-09] MEDS ORDERED: 1/2 NORMAL SALINE IV PRN ×2 (09:24)
[2017-07-09] MEDS ORDERED: INFLUENZA ADLT QUAD (36MOS+) 2017-18 VAC 0.5 ML SYR IM PRN (09:25)
--- NOTE | 2017-07-09 09:43 | EKG REPORT ---
SEVERITY:- ABNORMAL ECG - ACCELERATED JUNCTIONAL RHYTHM PROBABLE POSTERIOR INFARCT BORDERLINE PROLONGED QT INTERVAL FUSION BEAT : Confirmed by: Tamara Acuna 09-Jul-2017 09:42:24
--- NOTE | 2017-07-09 09:43 | EKG REPORT ---
SEVERITY:- ABNORMAL ECG - SINUS TACHYCARDIA POSTERIOR INFARCT : Confirmed by: Tamara Acuna 09-Jul-2017 09:42:31
[2017-07-09] MEDS ORDERED: VANCOMYCIN HCL 1,500 MG in DEXTROSE 5%-WATER 250 ML IV ONE (10:00)
[2017-07-09] MEDS ORDERED: LEVOFLOXACIN 750 MG/D5W RTU 750 MG/150 ML RTUPB IV ONE (10:00)
[2017-07-09] MEDS ORDERED: DEXTROSE 5%-WATER 250 ML with NOREPINEPHRINE BITARTRATE 4 MG IV PRN ×2 (10:15)
[2017-07-09] MEDS ORDERED: SUCCINYLCHOLINE CHLORIDE INJ 200 MG/10 ML VIAL ONE (10:23)
[2017-07-09 11:22] LABS: ARTERIAL BLOOD BASE EXCESS -24.2 mmol/L; ARTERIAL BLOOD O2 SATURATION 99.8 % (94-98)
[2017-07-09 11:28] LABS: PATH REVIEW PATHOLOGIST REVIEWED
[2017-07-09 11:47] LABS: ARTERIAL BLOOD BASE EXCESS -22.4 mmol/L; ARTERIAL BLOOD O2 SATURATION 99.6 % (94-98)
[2017-07-09] MEDS ORDERED: CEFTRIAXONE 1 GM/D5W RTU 1 GM/50 ML RTUPB IV SCH (12:00)
--- NOTE | 2017-07-09 12:04 | Operative Report ---
Operative Report DATE OF SURGERY: 07/09/17 - septic shock Operative Report: 87-year-old male presented in septic shock hypoxemic intubated. His left groin was prepped and draped in a sterile manner 3 cc of 1% lidocaine was introduced into the area and using Arrow kit a 20-gauge femoral catheter was inserted into her is to his left femoral artery with excellent waveforms the line was sutured into place patient tolerated the procedure well.Distal extremities remain cool but pulses were palpable PREOPERATIVE DIAGNOSIS: Septic shock POSTOPERATIVE DIAGNOSIS: Same OPERATION: Insertion of left femoral arterial line SURGEON: ИРИНА BECKER ANESTHESIA: GA TISSUE REMOVED OR ALTERED: Not applicable COMPLICATIONS: None ESTIMATED BLOOD LOSS: 0cc
--- NOTE | 2017-07-09 12:12 | PDOC CONSULTATION ---
Consultation Consult Date: 07/09/17 Attending physician:: CONRADO GOFF Consult reason:: septic shock pna resp failure History of Present Illness Admission Date/PCP: 07/09/17 08:07 Vargas YUN MD History of Present Illness: ELIESER MOYA is a 87 year old malePresented to the emergency room hypoxic and hypotensive was subsequently started on multiple vasopressor agents and intubated and transferred to the ICU thus far he has had adequate arch mean arterial pressure of approximately 70 and saturations have run from 90-98% on FiO2 of 50%. Able to blow off PCO2 to large degree however this is not yet been adequate enough to make a significant improvement in his serum pH we will give him some sodium bicarbonate hoping transiently improving his pH.He is also noted to have a hemoglobin of 6.4 and is subsequently undergoing a transfusion 3 units of packed red cells patient's overall prognosis is extremely poor Portions of this note were dictated during [employer] natural speaking voice recognition software. Variations in spelling and tvocabulary are possible and unintentional. Please notify the author if any discrepancies are noted. Past Medical History Cardiac Medical History: Reports: Hyperlipidema, Hypertension Pulmonary Medical History: Denies: Tuberculosis Neurological Medical History: Denies: Seizures Endocrine Medical History: Reports: Diabetes Mellitus Type 2 GI Medical History: Reports: Gastroesophageal Reflux Disease Musculoskeltal Medical History: Reports: Arthritis Psychiatric Medical History: Reports: Depression Traumatic Medical History: Denies: Gunshot Wound, Pneumothorax Past Surgical History Past Surgical History: Reports: Cholecystectomy Denies: Pacemaker Social History Information Source: [facility] Records Lives with: Family Smoking Status: Unknown if Ever Smoked Frequency of Alcohol Use: None Hx Recreational Drug Use: No Drugs: None Hx Prescription Drug Abuse: No Do you have pets?: No Have you had any respiratory illnesses as a child?: No Have you been exposed to any sick contacts recently?: No Have you had any recent respiratory illnesses?: No Have you travelled outside of [place] in the past 12 months?: No Family History Family History: Reviewed & Not Pertinent Parental Family History Reviewed: No Children Family History Reviewed: No Sibling(s) Family History Reviewed.: No Medication/Allergy Home Medications: [place]-3 Acid Ethyl Esters [Lovaza 1 gm Capsule] 1 gm PO BID 12/10/11 Simvastatin [Zocor 40 mg Tablet] 40 mg PO QHS 12/10/11 Esomeprazole Magnesium [Nexium] 20 mg PO BID 02/04/15 Garlic [Garlique] 1 tab PO BID 04/09/17 Megestrol Acetate 15 ml PO QAM 04/09/17 Ondansetron [Ondansetron Odt] 4 mg PO TIDP PRN 04/09/17 Sodium Bicarbonate 650 mg PO BID 04/09/17 Calcium Carb/D3/Magnesium/Zinc [Shankar Mag Zinc + D Tablet] 1 tab PO DAILY Meclizine HCl [Antivert 25 mg Tablet] 0.5 - 1 tab PO QIDP PRN 07/09/17 Prednisone [Prednisone] 5 mg PO QHS 07/09/17 Prednisone [Prednisone] 10 mg PO QAM 07/09/17 Allergies/Adverse Reactions: No Known Allergies Allergy (Unverified 04/09/17 13:38) Review of Systems ROS unobtainable: Due to endotracheal tube, Due to mental status Physical Exam Vital Signs: Temp Pulse Resp BP Pulse Ox 97.4 F 110 H 41 H 65/33 L 100 07/09/17 08:12 07/09/17 01:50 07/09/17 08:12 07/09/17 08:12 07/09/17 08:12 General appearance: PRESENT: no acute distress, disheveled, thin, well-developed Head exam: PRESENT: atraumatic, normocephalic Eye exam: PRESENT: conjunctiva pale Mouth exam: PRESENT: dry mucosa, neck supple, tongue midline - ET tube in place Neck exam: ABSENT: carotid bruit, JVD, lymphadenopathy, thyromegaly Respiratory exam: PRESENT: crackles, decreased breath sounds, prolonged expiratory phas, rhonchi, symmetrical, tachypnea. ABSENT: accessory muscle use , chest wall tenderness, clear to auscultation kt, rales, retraction, stridor, unlabored Cardiovascular exam: PRESENT: RRR, +S1, +S2, tachycardia Pulses: PRESENT: normal radial pulses GI/Abdominal exam: PRESENT: normal bowel sounds, soft. ABSENT: distended, guarding, mass, organolmegaly, rebound, tenderness Gentrourinary exam: PRESENT: indwelling catheter Extremities exam: ABSENT: calf tenderness, clubbing, joint swelling, pedal edema Musculoskeletal exam: ABSENT: ambulatory, deformity, dislocation Neurological exam: PRESENT: altered Skin exam: PRESENT: dry, pallor Results Impressions: Chest X-Ray 07/09/17 05:28 IMPRESSION: Improved aeration the lung bases bilaterally with streaky bibasilar residual opacities and low lung volumes. Endotracheal tube 2 cm above the simon. Assessment & Plan - Diagnosis (1) Septic shock Is this a current diagnosis for this admission?: Yes Plan: Profound metabolic acidosis will support as indicated (2) CKD (chronic kidney disease) stage 3, GFR 30-59 ml/min Is this a current diagnosis for this admission?: Yes (3) GERD (gastroesophageal reflux disease) Qualifiers: Esophagitis presence: without esophagitis Qualified Code(s): K21.9 - Gastro -esophageal reflux disease without esophagitis Is this a current diagnosis for this admission?: Yes Plan: PPIs is indicated - Time Time Spent with patient: 120 minutes ICU time
[2017-07-09 12:49] LABS: HEMATOCRIT 20.2 % (37.9-51.0); MEAN CORPUSCULAR HEMOGLOBIN 32.9 pg (27.0-33.4); MEAN CORPUSCULAR HGB CONC 31.7 g/dL (32.0-36.0); MEAN CORPUSCULAR VOLUME 104 fl (80-97); RED BLOOD COUNT 1.95 10^6/uL (4.35-5.55); RED CELL DISTRIBUTION WIDTH 15.2 % (11.5-14.0); WHITE BLOOD COUNT 22.9 10^3/uL (4.0-10.5)
[2017-07-09] MEDS ORDERED: SODIUM BICARBONATE 8.4% INJ 50 MEQ/50 ML DISP.SYRIN IV ONE (13:00)
[2017-07-09 13:18] LABS: ANION GAP 18 (5-19); BLOOD UREA NITROGEN 28 mg/dL (7-20); CHLORIDE 111 mmol/L (98-107); CREATININE RESULT 2.14 mg/dL (0.52-1.25); GLUCOSE 388 mg/dL (75-110); POTASSIUM 4.5 mmol/L (3.6-5.0); SODIUM 137.7 mmol/L (137-145)
[2017-07-09 13:26] LABS: HEMOGLOBIN 6.4 g/dL (13.5-17.0)
[2017-07-09 13:27] LABS: CALCIUM 6.2 mg/dL (8.4-10.2); CARBON DIOXIDE 9 mmol/L (22-30)
[2017-07-09 13:31] LABS: BAND NEUTROPHILS % (MANUAL) 10 % (3-5); BASOPHILS % (MANUAL) 0 % (0-2); EOSINOPHILS % (MANUAL) 0 % (0-6); LYMPHOCYTES % (MANUAL) 17 % (13-45); NUCLEATED RED BLOOD CELLS 1 /100 WBC (0); TOTAL CELLS COUNTED 100; TOXIC GRANULATION 2+; TOXIC VACUOLATION PRESENT
[2017-07-09 13:32] LABS: ANISOCYTOSIS SLIGHT; BURR CELLS 1+; OVALOCYTES 1+; POIKILOCYTOSIS 2+; POLYCHROMASIA 1+
[2017-07-09] MEDS ORDERED: HYDROCORTISONE SOD SUCCINATE INJ/PF 100 MG/2 ML SDV IV SCH (14:00)
[2017-07-09 14:49] VITALS: BP 114/90
[2017-07-09] MEDS ORDERED: MORPHINE SULFATE 10 MG/ML INJ IV PRN (15:19)
[2017-07-09] MEDS ORDERED: LORAZEPAM INJ 2 MG/1 ML VIAL IV PRN (15:19)
--- NOTE | 2017-07-09 15:32 | PDOC H&P ---
History of Present Illness Admission Date/PCP: 07/09/17 08:07 Vargas OTTO MD Patient complains of: Patient currently intubated, apparently presented with productive cough of 1 1/2 weeks History of Present Illness: ELIESER MOYA is a 87 year old male history of diabetes, hypertension, chronic kidney disease for which he sees Dr. Otto and Dr. Martin, presented to the ED with productive cough for 1-1/2 weeks, shortness of breath. By yesterday evening he had significant difficulty breathing and gagging and EMS was called. Initial evaluation in the ED and came for tachycardia, blood pressure 140/60. Lactic acid was elevated and patient was being managed for sepsis. He declined, became hypotension and worsening respiratory status and required intubation. He was treated with IV fluid boluses, received Zosyn antibiotics, and is currently on pressors. He is being admitted to ICU. Family currently not available, history obtained from review of medical records and discussion with ED provider. Past Medical History Cardiac Medical History: Reports: Hyperlipidema, Hypertension Pulmonary Medical History: Denies: Tuberculosis Neurological Medical History: Denies: Seizures Endocrine Medical History: Reports: Diabetes Mellitus Type 2 GI Medical History: Reports: Gastroesophageal Reflux Disease Musculoskeltal Medical History: Reports: Arthritis Psychiatric Medical History: Reports: Depression Past Surgical History Past Surgical History: Reports: Cholecystectomy Denies: Pacemaker Social History Smoking Status: Unknown if Ever Smoked Frequency of Alcohol Use: None Hx Recreational Drug Use: No Hx Prescription Drug Abuse: No - Advance Directive Resuscitation Status: Full Code Family History Family History: Unable to obtain due to intubated and unable to provide at this time. Parental Family History Reviewed: No Children Family History Reviewed: No Sibling(s) Family History Reviewed.: No Medication/Allergy Home Medications: [place]-3 Acid Ethyl Esters [Lovaza 1 gm Capsule] 1 gm PO BID 12/10/11 Simvastatin [Zocor 40 mg Tablet] 40 mg PO QHS 12/10/11 Esomeprazole Magnesium [Nexium] 20 mg PO BID 02/04/15 Garlic [Garlique] 1 tab PO BID 04/09/17 Megestrol Acetate 15 ml PO QAM 04/09/17 Ondansetron [Ondansetron Odt] 4 mg PO TIDP PRN 04/09/17 Sodium Bicarbonate 650 mg PO BID 04/09/17 Calcium Carb/D3/Magnesium/Zinc [Shankar Mag Zinc + D Tablet] 1 tab PO DAILY Meclizine HCl [Antivert 25 mg Tablet] 0.5 - 1 tab PO QIDP PRN 07/09/17 Prednisone [Prednisone] 5 mg PO QHS 07/09/17 Prednisone [Prednisone] 10 mg PO QAM 07/09/17 Allergies/Adverse Reactions: No Known Allergies Allergy (Unverified 04/09/17 13:38) Review of Systems ROS unobtainable: Due to endotracheal tube Review of Systems: Unable to obtain due to patient intubated and unresponsive. Physical Exam Vital Signs: Temp Pulse Resp BP Pulse Ox 97.0 F 107 H 41 H 115/103 H 100 07/09/17 09:26 07/09/17 09:26 07/09/17 09:50 07/09/17 09:48 07/09/17 09:26 Intake & Output 07/08/17 07/09/17 07/10/17 06:59 06:59 06:59 Intake Total 0 Balance 0 General appearance: PRESENT: no acute distress Exam: GENERAL: Elderly male, intubated, unresponsive at this time. HEAD: Normocephalic, atraumatic. EYES: Pupils equal, round, and reactive to light. NECK: No JVD, no thyromegaly. LUNGS: Diminished at the bases with few crackles. Tachypneic. HEART: Tachycardic. No murmurs, gallops, or rubs. ABDOMEN: Soft, nondistended, nontender. No guarding, rebound, or rigidity.. Bowel sounds present in all 4 quadrants. EXTREMITIES: No edema, radial and dorsalis pedis pulses 2/4 bilaterally. No cyanosis. NEUROLOGICAL: Unable to assess at this time. KIN: Warm, dry, normal turgor. No rashes or lesions noted. Results Laboratory Results: 07/09/17 08:47 Carbonic Acid 0.54 L HCO3/H2CO3 Ratio 8:1 ABG pH 7.04 L* ABG pCO2 18.0 L* ABG pO2 194.3 H ABG HCO3 4.8 L ABG O2 Saturation 98.8 H ABG Base Excess -23.7 FiO2 40% White blood cells by presentation was 10.7, hemoglobin 10.1 hematocrit 29.1 platelets 123 Repeat labs significant for white blood cells 28.3, hemoglobin 6.4 hematocrit 20.8 platelets 133 Chem-7 by presentation significant for sodium 139, potassium 4.0, chloride 104, BUN 35, creatinine 1.63, bicarb 19 Repeat Chem-7 significant for bicarb decreased to 7, BUN 31, creatinine 1.97, glucose 384 BNP is 1550, normal troponin 0.028 Lactic acid initially 5.1, repeat 13.6 Impressions: Chest X-Ray 07/09/17 05:28 IMPRESSION: Improved aeration the lung bases bilaterally with streaky bibasilar residual opacities and low lung volumes. Endotracheal tube 2 cm above the simon. Assessment & Plan - Diagnosis (1) Sepsis due to pneumonia Plan: We will continue IV fluid aggressively, vasopressors for now. Patient critically ill. She has received Zosyn in the ED. Will switch to Levaquin, Rocephin, as well as vancomycin at this time. It appears patient was on steroid as outpatient. Will add stress dose steroids with hydrocortisone 100 mg every 6 hours to medications at this time. (2) Acute respiratory failure Is this a current diagnosis for this admission?: Yes Plan: Currently intubated. Will obtain pulmonology consult with Dr. Rouse. (3) Sepsis due to pneumonia Is this a current diagnosis for this admission?: Yes (4) Anemia Is this a current diagnosis for this admission?: Yes Plan: Unknown etiology at this time. No active bleeding noted at this time. Will transfuse 2 units packed red blood cells. Follow serial H&H. Check anemia profile. Guaiac stools. (5) Pneumonia Qualifiers: Pneumonia type: due to unspecified organism Laterality: bilateral Lung location: lower lobe of lung Qualified Code(s): J18.9 - Pneumonia, unspecified organism Plan: Community acquired. Patient critically ill. Will treat with Levaquin, Rocephin , as well as at [facility] as in sepsis. (6) CKD (chronic kidney disease) stage 3, GFR 30-59 ml/min Plan: We will treat with IV fluid. Metabolic acidosis. Will treat with bicarb. Continue to monitor. (7) Diabetes mellitus Plan: Patient currently n.p.o. On IV fluid with D5 NS. Will check Accu-Cheks and cover with sliding scale insulin for now. - Inpatient Certification Based on my medical assessment, after consideration of the patient's comorbidities, presenting symptoms, or acuity I expect that the services needed warrant INPATIENT care.: Yes I certify that my determination is in accordance with my understanding of Medicare's requirements for reasonable and necessary INPATIENT services [42 CFR 412.3e].: Yes Medical Necessity: Need Close Monitoring Due to Risk of Patient Decompensation, Need for IV Antibiotics
--- NOTE | 2017-07-09 19:48 | Death Summary ---
Summary Date : 07/09/17 Time of :: 15:48 Autopsy: No Resuscitation Status: Comfort Measures Only - Final Diagnosis (1) Sepsis due to pneumonia Is this a current diagnosis for this admission?: Yes (2) Acute respiratory failure Is this a current diagnosis for this admission?: Yes (3) Pneumonia Is this a current diagnosis for this admission?: Yes (4) Anemia Is this a current diagnosis for this admission?: Yes (5) CKD (chronic kidney disease) stage 3, GFR 30-59 ml/min Is this a current diagnosis for this admission?: Yes Hospital Course:: 57-year-old male who has had cough for about 1-1/2 weeks. He presented with worsening symptoms, cough, shortness of breath. His lactic acid was positive and he was started on sepsis protocol in the ED. His condition quickly deteriorated and patient was intubated, treated with vasopressors, broad- spectrum IV antibiotics, and admitted to ICU. He was also anemic and transfused 2 units packed red blood cells. Patient was seen in consultation by Dr. Rouse of pulmonology. When I subsequently saw the , she understood prognosis was extremely poor, stated patient has been doing poorly, and desired for him to be DNR. She stated that was patient's wishes. She also desired comfort care only. I wishes are carried out, and patient shortly after at 1548 hrs. he states was preserved.
--- NOTE | 2017-07-09 20:08 | XCELERA REPORT ---
[address] [address] Transthoracic Echocardiogram Report Name: ELIESER MOYA Age: 87 yrs Gender: Male : 1930 Patient Status: Inpatient Patient Location: ICU^[id number]^A Study Date: 07/09/2017 11:07 AM Height: 69 in Weight: 149 lb BSA: 1.8 m2 Procedure: A complete two-dimensional transthoracic echocardiogram was performed (2D, M-mode, spectral and color flow Doppler). The study was technically difficult with many images being suboptimal in quality. Reason For Study: resp failure Ordering Physician: TAMARA JIMENEZ Performed By: Jeanette Koch Interpretation Summary The left ventricular ejection fraction is normal. Doppler measurements suggest pseudonormalized left ventricular relaxation, which is associated with grade II/IV or mild to moderate diastolic dysfunction There is mild concentric left ventricular hypertrophy. The left ventricle is grossly normal size. Regional wall motion abnormalities cannot be excluded due to limited visualization. The right ventricle is grossly normal size. The right ventricular systolic function is normal. The left atrial size is normal. The right atrium is normal. There is a trace amount of mitral regurgitation There is no mitral valve stenosis. There is a mild amount of aortic regurgitation There is no aortic valve stenosis There is a trace or physiologic amount of tricuspid regurgitation Tricuspid regurgitation jet envelope not well defined to measure RV systolic pressure accurately. Minimal pericardial effusion. MMode/2D Measurements & Calculations RVDd: 2.1 cm LVIDd: 3.3 cm FS: 30.1 % Ao root diam: 3.0 cm IVSd: 0.96 cm LVIDs: 2.3 cm EDV(Teich): 42.5 ml LVPWd: 1.0 cm ESV(Teich): 17.6 ml Ao root area: 7.2 cm2 EF(Teich): 58.6 % LA dimension: 2.6 cm Doppler Measurements & Calculations MV E max michael: MV P1/2t max michael: Ao V2 max: AI max michael: 48.9 cm/sec 49.9 cm/sec 160.7 cm/sec 401.2 cm/sec MV A max michael: MV P1/2t: 46.8 msec Ao max PG: AI max P.4 cm/sec 10.3 mmHg 64.4 mmHg MV E/A: 0.60 MVA(P1/2t): 4.7 cm2 AI dec slope: MV dec slope: 312.2 cm/sec2 339.3 cm/sec2 AI P1/2t: 346.3 msec LV V1 max PG: PA V2 max: 5.2 mmHg 75.0 cm/sec LV V1 max: PA max P.3 mmHg 114.0 cm/sec Left Ventricle The left ventricle is grossly normal size. There is mild concentric left ventricular hypertrophy. The left ventricular ejection fraction is normal. Doppler measurements suggest pseudonormalized left ventricular relaxation, which is associated with grade II/IV or mild to moderate diastolic dysfunction. Regional wall motion abnormalities cannot be excluded due to limited visualization. Right Ventricle The right ventricle is grossly normal size. There is normal right ventricular wall thickness. The right ventricular systolic function is normal. Atria The right atrium is normal. The left atrial size is normal. Interarterial septum not well visualized and not well dopplered. Cannot comment on ASD/PFO presence. Mitral Valve The mitral valve leaflets are sclerotic, but show no functional abnormalities. There is no mitral valve stenosis. There is a trace amount of mitral regurgitation. Aortic Valve The aortic valve is moderately calcified. There is no aortic valve stenosis. There is a mild amount of aortic regurgitation. Tricuspid Valve The tricuspid valve is not well visualized secondary to technical limitations. There is no tricuspid stenosis. There is a trace or physiologic amount of tricuspid regurgitation. Tricuspid regurgitation jet envelope not well defined to measure RV systolic pressure accurately. Pulmonic Valve The pulmonic valve is not well visualized. Great Vessels The aortic root is not well visualized. The inferior vena cava was not well visualized. Effusions Minimal pericardial effusion. : TAMARA JIMENEZ > Tamara Jimenez
--- NOTE | 2017-07-09 20:42 | PDOC CONSULTATION ---
Consultation Consult Date: 07/09/17 Attending physician:: SHYAM ROBERSON Consult reason:: Hypotension History of Present Illness Admission Date/PCP: 07/09/17 08:07 Vargas OTTO MD Patient complains of: Patient intubated, in extremis History of Present Illness: ELIESER MOYA is a 87 year old male history of diabetes, hypertension, chronic kidney disease for which he sees Dr. Otto and Dr. Martin, presented to the ED with productive cough for 1-1/2 weeks, shortness of breath. By yesterday evening he had significant difficulty breathing and gagging and EMS was called. Initial evaluation in the ED and came for tachycardia, blood pressure 140/60. Lactic acid was elevated and patient was being managed for sepsis. He declined, became hypotension and worsening respiratory status and required intubation. He was treated with IV fluid boluses, received Zosyn antibiotics, and is currently on pressors. He is being admitted to ICU. Family currently not available, history obtained from review of medical records and discussion with ED provider. This history was reviewed. Patient was seen in the morning at around 930 to 10 AM. I was primarily consulted to help with management of low blood pressure. Patient was quickly examined. He was noted to be unresponsive on the ventilator. He was noted to have very weak pulse and hypotensive. Order was given to force fluid and also start patient on vasopressin drip. Patient was already on Levophed and Hussein-Synephrine. His abdomen was noted to be mildly distended. His lung exam shows bibasilar crackles. Extremities shows poor peripheral perfusion. Past Medical History Cardiac Medical History: Reports: Hyperlipidema, Hypertension Pulmonary Medical History: Denies: Tuberculosis Neurological Medical History: Denies: Seizures Endocrine Medical History: Reports: Diabetes Mellitus Type 2 GI Medical History: Reports: Gastroesophageal Reflux Disease Musculoskeltal Medical History: Reports: Arthritis Psychiatric Medical History: Reports: Depression Traumatic Medical History: Denies: Gunshot Wound, Pneumothorax Past Surgical History Past Surgical History: Reports: Cholecystectomy Denies: Pacemaker Social History Information Source: [facility] Records Lives with: Family Smoking Status: Unknown if Ever Smoked Frequency of Alcohol Use: None Hx Recreational Drug Use: No Drugs: None Hx Prescription Drug Abuse: No - Advance Directive Resuscitation Status: Comfort Measures Only Surrogate healthcare decision maker:: Patient's Family History Family History: Reviewed & Not Pertinent Parental Family History Reviewed: No Children Family History Reviewed: No Sibling(s) Family History Reviewed.: No Medication/Allergy Home Medications: Andrews-3 Acid Ethyl Esters [Lovaza 1 gm Capsule] 1 gm PO BID 12/10/11 Simvastatin [Zocor 40 mg Tablet] 40 mg PO QHS 12/10/11 Esomeprazole Magnesium [Nexium] 20 mg PO BID 02/04/15 Garlic [Garlique] 1 tab PO BID 04/09/17 Megestrol Acetate 15 ml PO QAM 04/09/17 Ondansetron [Ondansetron Odt] 4 mg PO TIDP PRN 04/09/17 Sodium Bicarbonate 650 mg PO BID 04/09/17 Calcium Carb/D3/Magnesium/Zinc [Shankar Mag Zinc + D Tablet] 1 tab PO DAILY Meclizine HCl [Antivert 25 mg Tablet] 0.5 - 1 tab PO QIDP PRN 07/09/17 Prednisone [Prednisone] 5 mg PO QHS 07/09/17 Prednisone [Prednisone] 10 mg PO QAM 07/09/17 Allergies/Adverse Reactions: No Known Allergies Allergy (Unverified 04/09/17 13:38) Review of Systems ROS unobtainable: Due to endotracheal tube, Due to mental status Physical Exam Vital Signs: Temp Pulse Resp BP Pulse Ox 97.3 F 102 H 39 H 114/90 H 80 L 07/09/17 12:58 07/09/17 12:58 07/09/17 14:45 07/09/17 14:23 07/09/17 13:55 Intake & Output 07/08/17 07/09/17 07/10/17 06:59 06:59 06:59 Intake Total 750 Output Total 2 Balance 748 Exam: GENERAL: Patient looks very debilitated.. Patient is intubated and sedated. Orientation cannot be checked HEAD: Atraumatic, normocephalic. EYES: extraocular movements could not be checked, sclera anicteric, conjunctiva are normal. Pupils reacting ENT: TMs normal, nares patent, oropharynx clear without exudates. Moist mucous membranes. No oral ulcerations or bleeding gums noted NECK: supple without lymphadenopathy or JVD. Trachea is central. No cervical or axillary lymphadenopathy noted. Carotids are 2+ LUNGS: Breath sounds mostly clear to auscultation patient is noted to have bibasal crackles at the extreme bases CHEST: Palpation of the chest wall shows no significant chest wall tenderness or abnormalities. 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 ABDOMEN: Soft, no significant tenderness appreciated, hypoactive bowel sounds. No guarding, no rebound. No rigidity noted . No masses appreciated. Mild abdominal distention noted. EXTREMITIES: Pedal pulses are significantly diminished +, cough tenderness could not be assessed, 1+ pedal edema noted. No clubbing or cyanosis. NEUROLOGICAL: The patient cannot participate in the neurological exam but no facial asymmetry noted. Extremities hypotonic PSYCH: This cannot be evaluated. Patient cannot participate. SKIN: No significant ecchymosis, rash, or signs of pruritus noted. MUSCULOSKELETAL EXAM: No significant joint swelling noted. Patient cannot participate in musculoskeletal exam Results Laboratory Results: 07/09/17 12:35 07/09/17 12:35 07/09/17 07/09/17 07/09/17 08:47 11:06 11:35 WBC RBC Hgb Hct MCV MCH MCHC RDW Plt Count Seg Neutrophils % Lymphocytes % Monocytes % Eosinophils % Basophils % Absolute Neutrophils Absolute Lymphocytes Absolute Monocytes Absolute Eosinophils Absolute Basophils Carbonic Acid 0.54 L 0.60 L 0.58 L HCO3/H2CO3 Ratio 8:1 8:1 9:1 ABG pH 7.04 L* 7.01 L* 7.08 L* ABG pCO2 18.0 L* 20.0 L* 19.4 L* ABG pO2 194.3 H 514.2 H 334.2 H ABG HCO3 4.8 L 5.0 L 5.6 L ABG O2 Saturation 98.8 H 99.8 H 99.6 H ABG Base Excess -23.7 -24.2 -22.4 FiO2 40% 100% 70% Sodium Potassium Chloride Carbon Dioxide Anion Gap BUN Creatinine Est GFR ( Amer) Est GFR (Non-Af Amer) Glucose Calcium 07/09/17 07/09/17 12:35 12:35 WBC 22.9 H RBC 1.95 L Hgb 6.4 L Hct 20.2 L MCV 104 H MCH 32.9 MCHC 31.7 L RDW 15.2 H Plt Count 90 L Seg Neutrophils % Not Reportable Lymphocytes % Not Reportable Monocytes % Not Reportable Eosinophils % Not Reportable Basophils % Not Reportable Absolute Neutrophils Not Reportable Absolute Lymphocytes Not Reportable Absolute Monocytes Not Reportable Absolute Eosinophils Not Reportable Absolute Basophils Not Reportable Carbonic Acid HCO3/H2CO3 Ratio ABG pH ABG pCO2 ABG pO2 ABG HCO3 ABG O2 Saturation ABG Base Excess FiO2 Sodium 137.7 Potassium 4.5 Chloride 111 H Carbon Dioxide 9 L* Anion Gap 18 BUN 28 H Creatinine 2.14 H Est GFR ( Amer) 35 L Est GFR (Non-Af Amer) 29 L Glucose 388 H Calcium 6.2 L* EKG Comments: Multiple EKGs were reviewed. No acute ischemic changes noted patient noted mostly in sinus rhythm. Impressions: Chest X-Ray 07/09/17 05:28 IMPRESSION: Improved aeration the lung bases bilaterally with streaky bibasilar residual opacities and low lung volumes. Endotracheal tube 2 cm above the simon. Assessment & Plan - Diagnosis (1) Septic shock Is this a current diagnosis for this admission?: Yes (2) Hypotension Qualifiers: Hypotension type: unspecified hypotension type Qualified Code(s): I95.9 - Hypotension, unspecified Is this a current diagnosis for this admission?: Yes (3) Diabetes mellitus Qualifiers: Diabetes mellitus type: type 2 Is this a current diagnosis for this admission?: Yes (4) Respiratory failure Qualifiers: Chronicity: acute Respiratory failure complication: hypoxia and hypercapnia Qualified Code(s): J96.01 - Acute respiratory failure with hypoxia ; J96.02 - Acute respiratory failure with hypercapnia; J96.02 - Acute respiratory failure with hypercapnia; J96.02 - Acute respiratory failure with hypercapnia Is this a current diagnosis for this admission?: Yes - Notes Notes: Patient was noted to be severely hypotensive. A stat 2D echo was ordered. It showed normal LVEF. No significant valvular abnormalities noted. In fact LVEF was noted to be hyperdynamic. It was felt that hypotension was mostly related to sepsis with some contribution from anemia possibly related to internal bleed. I did talk with the nurse. It seems patient was crossmatched for 4 units and plan is to give him blood transfusion. I did tell them to force fluids and start patient on vasopressin drip as internal bleed was suspected. Patient also was continued on Hussein-Synephrine and Levophed drip but I was told that they were already maxed out. The nursing staff was informed that prognosis seems poor and that a comfort care status should be seeked for. Patient also looked severely debilitated. It seems subsequently, patient was made a comfort care. Subsequently patient . As noted above patient was seen on morning rounds. A stat echo was ordered and other orders were given by me. - Time Time Spent: 30 to 50 Minutes - CODE STATUS : was discussed, patient remains DO NOT RESUSCITATE. Surrogate decision-maker unchanged. Multiple medical problems were addressed. More than 50% of the time spent coordinating care, discussing management plans with involved caregivers. Management plans discussed with involved personnels. Medical decision making was of moderate to high complexity, patient's has multiple comorbidities. Medications reviewed and adjusted accordingly: Yes
[2017-07-10] MEDS ORDERED: VANCOMYCIN HCL 750 MG in DEXTROSE 5%-WATER 250 ML IV SCH (10:00)
[2017-07-11] MEDS ORDERED: LEVOFLOXACIN 750 MG/D5W RTU 750 MG/150 ML RTUPB IV SCH (10:00)
== END 2017-07-09 17:15 | disposition left against medical advice (07) | DRG 871 ==
LOC: ER 01:45 → EH 08:07 → ICU 08:53
PROVIDERS: ADMIT Internal Medicine; ATTEND Internal Medicine
PROC: 0BH17EZ Insertion of Endotracheal Airway into Trachea, Via Natural or Artificial Opening (ICD-10-PCS; principal; 2017-07-09)
PROC: 04HL33Z Insertion of Infusion Device into Left Femoral Artery, Percutaneous Approach (ICD-10-PCS; 2017-07-09)
PROC: 5A1935Z Respiratory Ventilation, Less than 24 Consecutive Hours (ICD-10-PCS; 2017-07-09)
PROC: 30233N1 Transfusion of Nonautologous Red Blood Cells into Peripheral Vein, Percutaneous Approach (ICD-10-PCS; 2017-07-09)
DX: A41.9 Sepsis, unspecified organism (principal); J18.9 Pneumonia, unspecified organism; R65.21 Severe sepsis with septic shock; J96.01 Acute respiratory failure with hypoxia; J96.02 Acute respiratory failure with hypercapnia; E87.2 Acidosis; Z66 Do not resuscitate; Z51.5 Encounter for palliative care; D64.9 Anemia, unspecified; N18.3 Chronic kidney disease, stage 3 (moderate); I12.9 Hypertensive chronic kidney disease with stage 1 through stage 4 chronic kidney disease, or unspecified chronic kidney disease; E11.22 Type 2 diabetes mellitus with diabetic chronic kidney disease; E78.5 Hyperlipidemia, unspecified; K21.9 Gastro-esophageal reflux disease without esophagitis; Z90.49 Acquired absence of other specified parts of digestive tract; F32.9 Major depressive disorder, single episode, unspecified; M19.90 Unspecified osteoarthritis, unspecified site
CPT/HCPCS: 36415; 36430; 51701; 51702; 71010; 80048; 80053; 81001; 82550; 82553; 82803; 83605; 83880; 84484; 85025; 85610; 86850; 86900; 86901; 86920; 87040; 87070; 87077; 87186; 87205; 93005; 93010; 93306; 94002; 96361; 96365; 96366; 96367; 99285; C1751; C1769; J0330; J0696; J1720; J1956; J2250; J2370; J2543; J3370; J3490; J7030; J7060; P9016